=== PATIENT | female | born 1950 | race Hispanic/Latino ===

== ENCOUNTER 2017-08-07 11:38 | Emergency (ER) | payer MEDICARE | END 2017-08-07 12:44 | disposition home or self-care (01) | LOC: EDH 11:38 | DX: J01.90 Acute sinusitis, unspecified (principal); H57.8 Other specified disorders of eye and adnexa | CPT/HCPCS: 96372 ==

== ENCOUNTER → 2018-11-29 | Outpatient (CLI) | payer MEDICARE | END | disposition home or self-care (01) | LOC: RAH 12:42 | PROVIDERS: ATTEND Family Medicine | DX: J32.9 Chronic sinusitis, unspecified (principal); R51 Headache | CPT/HCPCS: 70450 ==

== ENCOUNTER → 2023-09-25 | Outpatient (CLI) | payer OTHER | END | disposition home or self-care (01) | LOC: RAH 08:12 | PROVIDERS: ATTEND Internal Medicine | DX: R16.1 Splenomegaly, not elsewhere classified (principal); K76.0 Fatty (change of) liver, not elsewhere classified; R18.8 Other ascites; Z90.49 Acquired absence of other specified parts of digestive tract | CPT/HCPCS: 76700 ==

== ENCOUNTER → 2023-10-10 | Outpatient (CLI) | payer OTHER | END | disposition home or self-care (01) | LOC: RAH 14:21 | PROVIDERS: ATTEND Internal Medicine | DX: M81.0 Age-related osteoporosis without current pathological fracture (principal); N95.1 Menopausal and female climacteric states | CPT/HCPCS: 77080 ==

== ENCOUNTER → 2024-11-19 | Outpatient (CLI) | payer OTHER ==
--- NOTE | 2024-11-19 21:42 | HMCSR ---
APPROVED REPORT EXAM: Two-dimensional and M-mode echocardiogram with Doppler and color Doppler. INDICATION ICD: Cardiac murmur, unspecified R01.1 2D Dimensions RVDd4.2 cmLVEF(%)65.3 (>50%)LVED Vol(simp.)72.0 mL IVSd1.1 (0.7-1.1cm)FS(%)36 %LVES Vol(simp.)28.0 mL LVDd4.4 (3.8-5.6cm)LA (2D)4.6 (1.6-4.0cm)LVEF(%, simp.)62 % PWd0.7 (0.7-1.1cm)Ao Root(2D)3.3 (2.0-3.7cm)LA ESV INDEX (BP)34.27 mL/m2 IVSs1.3 cmLVOT diam1.8 (1.8-2.4cm) LVDs2.9 (2.5-4.0cm)IVC diam2.0 cm PWs1.4 cm M-Mode Dimensions EPSS0.5 cm LA (MM)4.6 (1.6-4.0cm) Ao Root(MM)2.7 (2.0-3.7cm) Aortic Valve AoV Vmax3.3 m/Aliyah Peak GR48.4 mmHgLVOT Vmax1.1 m/s AoV VTI0.6 mAo Mean GR24.4 mmHgLVOT VTI0.25 m MARY ANN (VMAX)0.90 cm2AVA (VTI) 1.1 cm2 Mitral Valve MV E Vmax98.3 cm/sDECEL Ximp277 ms MV A Yyjn406.2 cm/sP 1/2 T42 ms E/A ratio0.8MVA (PHT)5.3 cm2 TDI E/E' Mfzxuu28.5E/E' Kodfhym44.7 Medial E' Peak V5.32 cm/sLateral E' Peak V3.82 cm/s Pulmonary Valve PV Vmax0.9 m/sPV VTI0.19 mPV Mean GR2.1 mmHg PV Peak GR3.0 mmHgPI End Cristina. Tenzin 84.9 cm/s Tricuspid Valve TR Vmax2.6 m/sRAP (EST) 3 jyThFETL64.2 mmHg TR Peak GR29.2 mmHg Left Ventricle The left ventricle is normal size. There is normal LV segmental wall motion. There is normal left nehemias tricular wall thickness. LVEF is 60-65%. Stage I diastolic dysfunction. Right Ventricle The right ventricle is mildly dilated. The right ventricular systolic function is normal. Atria The left atrium is borderline dilated.. Cannot exclude PFO by color doppler. The right atrium is mode rately dilated. Aortic Valve Aortic valve is trileaflet and thickened. Right coronary cusp leaflet has limited excurstion No aorti c regurgitation is present. With induced valsalva AoV pk gradient 48mmHg, 24mmHg. 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 Mitral valve leaflets open well. Mild po sterior annular calcification noted. There is trace of mitral valve regurgitation noted. There is no mitral valve stenosis. Tricuspid Valve The tricuspid valve is normal in structure. There is mild tricuspid valve regurgitation noted. Pulmonic Valve The pulmonary valve is normal in structure. There is mild pulmonic valvular regurgitation. Great Vessels The aortic root is normal in size. The IVC is normal in size and collapses >50% with inspiration. Pericardium There is no pericardial effusion. Other Information Quality : Adequate Conclusion LVEF is 60-65%. Stage I diastolic dysfunction. The left atrium is borderline dilated.. Aortic valve is trileaflet and thickened. Right coronary cusp leaflet has limited excurstion With induced valsalva AoV pk gradient 48mmHg, 24mmHg. There is trace of mitral valve regurgitation noted.
== END | disposition home or self-care (01) ==
LOC: RAH 13:17
PROVIDERS: ATTEND Internal Medicine
DX: I08.8 Other rheumatic multiple valve diseases (principal); R01.1 Cardiac murmur, unspecified
CPT/HCPCS: 93306

== ENCOUNTER → 2025-01-20 | Outpatient (CLI) | payer OTHER ==
[2025-01-20 12:54] LABS: IMMATURE GRANULOCYTE ABSOLUTE 0.01 K/uL (0-1); NUCLEATED RED BLOOD CELLS 0.0 % (0.0-0.19); PLATELET COUNT (AUTO) 44 K/uL (130-400); RED BLOOD CELL COUNT(AUTO) 3.65 MIL/uL (4.00-5.50); RED CELL DISTRIBUTION WIDTH 14.1 % (11.0-15.5); WHITE BLOOD COUNT (AUTO) 2.8 K/uL (4.8-10.8)
[2025-01-20 13:03] LABS: INR 1.65 (0.85-1.15)
[2025-01-20 13:04] LABS: ASPARTATE AMINOTRANSFERASE 38.0 U/L (10-37); CREATININE 0.4 mg/dL (0.5-1.0); GLOMERULAR FILTR. RATE CALC 104.0 mL/min (>90); GLUCOSE,RANDOM 97.0 mg/dL (70-105); SODIUM SERUM 140.0 mmol/L (136-145); TOTAL PROTEIN, SERUM 7.3 g/dL (6.0-8.3); UREA NITROGEN, BLOOD 16.0 mg/dL (7-18)
[2025-01-20 14:14] LABS: EOSINOPHILS % (MANUAL) 7 % (1-6); LYMPHOCYTES % (MANUAL) 22 % (22-44); MAN.DIFF COMMENT-IMPRESSION MANUAL DIFFERENTIAL; MONOCYTES % (MANUAL) 7 % (2-9); SEGMENTED NEUTROPHILS % 64 % (40-70); WBC MORPHOLOGY CONSISTENT W/DIFF
[2025-01-20 14:15] LABS: PLATELET MORPHOLOGY COMMENT DECREASED
== END | disposition home or self-care (01) ==
LOC: LAB 11:14
PROVIDERS: ATTEND Internal Medicine Gastroenterology
DX: K42.9 Umbilical hernia without obstruction or gangrene (principal); K74.69 Other cirrhosis of liver
CPT/HCPCS: 36415; 80053; 85025; 85610

== ENCOUNTER → 2025-01-29 | Outpatient (CLI) | payer OTHER, MEDICARE ==
--- NOTE | 2025-01-22 11:15 | NUR ---
PT TO BE RESCHEDULED DUE TO INCOMPLETE ORDER, ONLY ABD CT ORDERED PT DIXIE A/P DUE TO UMBIILICAL HERNIA.
[~2025-01-29] MED LIST: IOHEXOL-350 75 ML VIAL IV ONE
--- NOTE | 2025-01-29 12:52 | HMCIMG ---
EXAM: CT Abdomen and Pelvis with Intravenous Contrast CLINICAL HISTORY: Umbilical hernia. TECHNIQUE: Axial computed tomography images of the abdomen and pelvis with intravenous contrast. Dose reduction technique was used including one or more of the following: automated exposure control, adjustment of mA and kV according to patient size, and/or iterative reconstruction. CONTRAST: With COMPARISON: None provided. FINDINGS: LUNG BASES: Atelectasis and scarring at the lung bases. LIVER: Cirrhotic appearance. GALLBLADDER AND BILE DUCTS: Unremarkable. No ductal dilation. PANCREAS: Unremarkable. SPLEEN: Splenomegaly. ADRENAL GLANDS: Unremarkable. KIDNEYS, URETERS, AND BLADDER: A small left renal cyst is seen in the abdomen. No hydronephrosis or nephrolithiasis. No ureteral or bladder calculi. STOMACH AND BOWEL: Diffuse edema of loops of small bowel suggesting moderate small bowel ileus. No obstruction. No wall thickening. No CT evidence of colitis or acute diverticulitis. APPENDIX: No CT evidence for appendicitis. PERITONEUM: Moderate ascites in the abdomen and pelvis. LYMPH NODES: No lymphadenopathy. REPRODUCTIVE: Unremarkable as visualized. VASCULATURE: Extensive paraesophageal venous varices are seen. Overall findings suggesting portal venous hypertension. No aortic aneurysm. ABDOMINAL WALL AND SOFT TISSUES: Umbilical hernia containing mesenteric fat and ascites. BONES: Moderate degenerative changes of the lumbar spine are noted. No fracture or suspicious osseous abnormality. Findings correlate to the ultrasound abdomen 09/25/2023. IMPRESSION: 1. Cirrhotic appearance of the liver, splenomegaly, and extensive paraesophageal venous varices, consistent with portal venous hypertension. 2. Moderate ascites. 3. Moderate small bowel ileus. 4. Umbilical hernia containing mesenteric fat and ascites. /[place]
== END | disposition home or self-care (01) ==
LOC: RAH 01-22 09:36
PROVIDERS: ATTEND Internal Medicine Gastroenterology
DX: K42.9 Umbilical hernia without obstruction or gangrene (principal); R16.1 Splenomegaly, not elsewhere classified; R18.8 Other ascites; K74.69 Other cirrhosis of liver; J98.11 Atelectasis; J98.4 Other disorders of lung; N28.1 Cyst of kidney, acquired; M47.816 Spondylosis without myelopathy or radiculopathy, lumbar region
CPT/HCPCS: 74178; Q9967